=== PATIENT | female | born 1990 | race Caucasian/White ===

== ENCOUNTER 2022-05-18 09:25 | Emergency (ER) | payer SELFPAY ==
[~2022-05-18] VITALS: Ht 157.5 cm; Wt 84.1 kg
[2022-05-18] MEDS ORDERED: VENLAFAXINE HY150 M1 PO (09:51)
[2022-05-18] MEDS ORDERED: AMITRIPTYLINE100 M3 PO (09:51)
[2022-05-18] MEDS ORDERED: CYCLOBENZAPRINE10 M1 PO (11:21)
[2022-05-18] MEDS ORDERED: NORCO 10-325 T1 EACH PO (11:21)
[2022-05-18 11:36] VITALS: BP 132/72
== END 2022-05-18 11:37 | disposition home or self-care (01) ==
LOC: ED 09:25
DX: M62.830 Muscle spasm of back (principal); F17.210 Nicotine dependence, cigarettes, uncomplicated; Z88.5 Allergy status to narcotic agent

== ENCOUNTER → 2022-05-22 | Outpatient (CLI) | payer SELFPAY ==
[~2022-05-22] MED LIST: AMITRIPTYLINE100 M3 PO; CYCLOBENZAPRINE10 M1 PO; NORCO 10-325 T1 EACH PO; VENLAFAXINE HY150 M1 PO
== END ==
LOC: RAD 18:19
DX: M51.16 Intervertebral disc disorders with radiculopathy, lumbar region (principal)

== ENCOUNTER 2022-07-08 11:24 | Emergency (ER) | payer SELFPAY ==
[~2022-07-08] VITALS: Ht 157.5 cm; Wt 84.1 kg
[2022-07-08] MEDS ORDERED: NORCO 325 MG-51 TA1 PO (11:33)
[2022-07-08 13:21] VITALS: BP 104/72
== END 2022-07-08 13:10 | disposition home or self-care (01) ==
LOC: ED 11:24
DX: R51.9 Headache, unspecified (principal); F17.210 Nicotine dependence, cigarettes, uncomplicated; Z86.69 Personal history of other diseases of the nervous system and sense organs; Z88.6 Allergy status to analgesic agent
CPT/HCPCS: J1885; J2550

== ENCOUNTER 2022-08-23 22:21 | Emergency (ER) | payer SELFPAY ==
[~2022-08-23] VITALS: Ht 157.5 cm; Wt 86.2 kg
[~2022-08-23 22:21] MED LIST changes: +NORCO 325 MG-51 TA1 PO
[2022-08-23 22:31] VITALS: BP 114/83
[2022-08-23] MEDS ORDERED: ONDANSETRON HYDR4 MG PO (23:19)
== END 2022-08-23 23:25 | disposition home or self-care (01) ==
LOC: ED 22:21
DX: G43.909 Migraine, unspecified, not intractable, without status migrainosus (principal); F17.200 Nicotine dependence, unspecified, uncomplicated
CPT/HCPCS: J1885; J2550

== ENCOUNTER → 2023-07-19 | Outpatient (CLI) | payer OTHER ==
[~2023-07-19] MED LIST changes: +ONDANSETRON HYDR4 MG PO
== END ==
LOC: RAD 12:24
DX: M25.561 Pain in right knee (principal)

== ENCOUNTER → 2024-11-03 | Outpatient (CLI) | payer OTHER ==
[2024-11-03 16:26] LABS: BASO # 0.02 K/mm3 (0.02-0.10); EOS # 0.14 K/mm3 (0.04-0.40); EOS % 2.1 % (1.0-5.0); HEMATOCRIT 41.8 % (37.0-47.0); HEMOGLOBIN 13.8 g/dL (12.5-16.0); LYMPH# 2.48 K/mm3 (1.50-4.00); MEAN CELL VOLUME 89 fl (78-100); MEAN CORPUSCULAR HEMOGLOBIN 30 pg (27-31); MEAN CORPUSCULAR HGB CONC 33 g/dL (33-37); MEAN PLATELET VOLUME 8.9 fl (7.4-10.4); MONO # 0.41 K/mm3 (0.20-0.80); NEU # 3.51 K/mm3 (1.40-6.50); PLATELET COUNT 345 K/mm3 (130-400); RED BLOOD COUNT 4.68 M/mm3 (4.10-5.30); RED CELL DISTRIBUTION WIDTH 11.9 % (11.5-14.5); WHITE BLOOD COUNT 6.6 K/mm3 (4.8-10.8)
[2024-11-03 16:33] LABS: ALBUMIN 4.6 g/dL (3.5-5.0)
[2024-11-03 16:34] LABS: CALCIUM 9.8 mg/dL (8.3-10.5)
[2024-11-03 16:37] LABS: TOTAL BILIRUBIN 0.2 mg/dL (0.2-1.2)
[2024-11-03 16:42] LABS: MAGNESIUM 2.13 mg/dL (1.60-2.60)
[2024-11-03 23:20] LABS: FOLATE (FOLIC ACID) 7.3 ng/mL (2.0-20.0)
== END ==
LOC: LAB 16:06
PROVIDERS: Internal Medicine
DX: F33.1 Major depressive disorder, recurrent, moderate (principal); K90.9 Intestinal malabsorption, unspecified